=== PATIENT | male | born 1980 | race African-American/Black ===

== ENCOUNTER 2016-04-24 10:37 | Emergency (ER) | payer MEDICAID ==
--- NOTE | 2016-04-24 10:52 | ER Document Report ---
ED Medical Screen (RME) - General Stated Complaint: POSSIBLE ABSCESS Notes: patient is here for evaluation of his tooth abscess, was seen 04/17 and sent home on PO abx main complain is swelling, no pain denies fevers, chills has a speech impediment TRAVEL OUTSIDE OF THE [place] IN LAST 30 DAYS: No - Related Data Allergies/Adverse Reactions: bee pollen [Bee Pollen] Allergy (Verified 04/24/16 10:49) Past Medical History - Immunizations Hx Diphtheria, Pertussis, Tetanus Vaccination: Yes Physical Exam - Vital signs Vitals: Temp Pulse Resp BP Pulse Ox 97.9 F 101 H 20 138/83 H 96 04/24/16 10:45 04/24/16 10:45 04/24/16 10:45 04/24/16 10:45 04/24/16 10:45 Course - Vital Signs Vital signs: Temp Pulse Resp BP Pulse Ox 97.9 F 101 H 20 138/83 H 96 04/24/16 10:45 04/24/16 10:45 04/24/16 10:45 04/24/16 10:45 04/24/16 10:45
[2016-04-24 11:24] LABS: ABSOLUTE BASOPHILS # (AUTO) 0.1 10^3/uL (0.0-0.2); ABSOLUTE EOSINOPHILS # (AUTO) 0.1 10^3/uL (0.0-0.6); ABSOLUTE LYMPHOCYTES (AUTO) 1.3 10^3/uL (0.5-4.7); ABSOLUTE MONOCYTES (AUTO) 0.8 10^3/uL (0.1-1.4); ABSOLUTE NEUT (AUTO) 5.3 10^3/uL (1.7-8.2); BASOPHILS % (AUTO) 1.3 % (0-2); EOSINOPHILS % (AUTO) 1.1 % (0-6); HEMATOCRIT 43.5 % (37.9-51.0); HEMOGLOBIN 14.2 g/dL (13.5-17.0); HGB HCT DIFFERENCE -0.9; LYMPHOCYTES % (AUTO) 17.1 % (13-45); MEAN CORPUSCULAR HEMOGLOBIN 28.6 pg (27.0-33.4); MEAN CORPUSCULAR HGB CONC 32.6 g/dL (32.0-36.0); MEAN CORPUSCULAR VOLUME 88 fl (80-97); MONOCYTES % (AUTO) 10.4 % (3-13); RED BLOOD COUNT 4.94 10^6/uL (4.35-5.55); RED CELL DISTRIBUTION WIDTH 13.8 % (11.5-14.0); SEGMENTED NEUTROPHILS % (AUTO) 70.1 % (42-78); WHITE BLOOD COUNT 7.6 10^3/uL (4.0-10.5)
[2016-04-24] MEDS ORDERED: NORMAL SALINE 1000 ML 1,000 ML IV PRN (11:36)
[2016-04-24] MEDS ORDERED: CLINDAMYCIN 600 MG/D5W RTU 50 ML IV ONE (11:36)
--- NOTE | 2016-04-24 11:39 | ER Document Report ---
ED Oral Problem - General Chief Complaint: Toothache Stated Complaint: POSSIBLE ABSCESS Time seen by provider: 11:37 Mode of Arrival: Ambulatory Information source: Patient Notes: This is a 35-year-old man who has a history of dental caries who presents to the emergency room with swelling to the left mandible. Patient denies fever. He denies difficulty swallowing or talking. The patient does have a speech impediment since and he states that his speech has not changed at all. He denies any wheezing or any pain in the neck. Patient was evaluated and treated one week ago and sent home on antibiotics. He presents with persistent symptoms. TRAVEL OUTSIDE OF THE [place] IN LAST 30 DAYS: No - HPI Patient complains to provider of: Jaw pain, Swelling of face, Swelling of jaw Onset: Last week Onset: Gradual Quality of pain: Achy Severity: Mild Pain Level: Denies Context: Fractured tooth, Recent antibiotic use Associated symptoms: denies: Chills, Difficulty speaking, Fever, Tongue swelling Similar symptoms previously: Yes Recently seen / treated by doctor/dentist: Yes - Related Data Allergies/Adverse Reactions: bee pollen [Bee Pollen] Allergy (Verified 04/24/16 10:49) Past Medical History - General Information source: Patient - Social History Smoking Status: Never Smoker Cigarette use (# per day): No Chew tobacco use (# tins/day): No Frequency of alcohol use: Occasional Drug Abuse: None Lives with: Family Family History: Reviewed & Not Pertinent Patient has suicidal ideation: No Patient has homicidal ideation: No - Past Medical History Cardiac Medical History: Reports: None Pulmonary Medical History: Reports: None EENT Medical History: Reports: Other - History of dental abscesses before Neurological Medical History: Reports: None Endocrine Medical History: Reports: None Renal/ Medical History: Reports: None. Denies: Hx Peritoneal Dialysis Malignancy Medical History: Reports None GI Medical History: Reports: None Musculoskeltal Medical History: Reports None Skin Medical History: Reports None Psychiatric Medical History: Reports: None Traumatic Medical History: Reports: None Infectious Medical History: Reports: None Surgical Hx: Other - Noncontributory - Immunizations Hx Diphtheria, Pertussis, Tetanus Vaccination: Yes Review of Systems - Review of Systems Constitutional: denies: Chills, Fever EENT: No symptoms reported Cardiovascular: No symptoms reported Respiratory: No symptoms reported Gastrointestinal: No symptoms reported Genitourinary: No symptoms reported Male Genitourinary: No symptoms reported Musculoskeletal: No symptoms reported Skin: No symptoms reported Hematologic/Lymphatic: No symptoms reported Neurological/Psychological: No symptoms reported Physical Exam - Vital signs Vitals: Temp Pulse Resp BP Pulse Ox 97.9 F 101 H 20 138/83 H 96 04/24/16 10:45 04/24/16 10:45 04/24/16 10:45 04/24/16 10:45 04/24/16 10:45 Notes: Physical exam: GENERAL: 35-year-old man, alert and oriented 3, no acute distress, sitting up in stretcher without any difficulty. The patient does tolerate lying down without any difficulty. He is afebrile and he has stable vital signs. HEAD: Atraumatic, normocephalic. EYES: Pupils equal round and reactive to light, extraocular movements intact, sclera anicteric, conjunctiva are normal. ENT: TMs normal, nares patent, oropharynx reveals significant dental caries to the left lower first molar. There is no obvious pus drainage from there. The patient does have swelling just below this area over the mandible without obvious fluctuance. Moist mucous membranes. There is no trismus. The floor of the mouth is soft and there is no obvious induration, tenderness or swelling. NECK: Normal range of motion, supple, there is no stridor, there is no tenderness to palpation or fluctuance or swelling of the submental spaces. LUNGS: Breath sounds clear to auscultation bilaterally and equal. No wheezes rales or rhonchi. HEART: Regular rate and rhythm without murmurs, rubs or gallops. ABDOMEN: Soft, nontender, normoactive bowel sounds. No guarding, no rebound. No masses appreciated. EXTREMITIES: Normal range of motion, no pitting or edema. No clubbing or cyanosis. NEUROLOGICAL: Cranial nerves II through XII grossly intact. Normal speech, normal gait. PSYCH: Normal mood, normal affect. SKIN: Warm, Dry, normal turgor, no rashes or lesions noted. Course - Re-evaluation Re-evalutation: 04/24/16 15:54 Note: The patient has a left mandibular subcutaneous abscess from periodontal disease. Given the patient's body habitus, the concern is that if the abscess extends into the submental space, he will develop Dariusz angina. Currently, the floor of his mouth is soft and there is no tenderness or fluctuance or induration in the submental space. He has no odynophagia, dysphagia or difficulty swallowing and he does not appear septic. We do not have oral surgery or ENT available for consultation. I discussed the case with Dr. Aj of [facility] at [facility] and he recommended transfer ED to ED. I spoke to Dr. Antonio who is willing to accept the patient to the ED. Patient has received IV fluids and IV clindamycin thus far. 04/24/16 19:46 - Vital Signs Vital signs: Temp Pulse Resp BP Pulse Ox 98.5 F 92 17 138/83 H 96 04/24/16 15:38 04/24/16 15:38 04/24/16 15:38 04/24/16 15:38 04/24/16 15:38 - Laboratory Result Diagrams: 04/24/16 11:05 04/24/16 11:05 Laboratory results interpreted by me: 04/24/16 11:05 BUN 21 H - Diagnostic Test Radiology reviewed: Image reviewed, Reports reviewed - CT of the neck reveals a subcutaneous left mandibular abscess Discharge - Discharge Clinical Impression: mandibular abscess Condition: Stable Disposition: [facility]
[2016-04-24 11:47] LABS: ALANINE AMINOTRANSFERASE 38 U/L (21-72); ALBUMIN 3.9 g/dL (3.5-5.0); ALKALINE PHOSPHATASE 82 U/L (38-126); ANION GAP 10 (5-19); ASPARTATE AMINO TRANSFERASE 34 U/L (17-59); BILIRUBIN,TOTAL 0.3 mg/dL (0.2-1.3); BLOOD UREA NITROGEN 21 mg/dL (7-20); CALCIUM 9.2 mg/dL (8.4-10.2); CARBON DIOXIDE 29 mmol/L (22-30); CHLORIDE 101 mmol/L (98-107); CREATININE RESULT 1.11 mg/dL (0.52-1.25); GLUCOSE 100 mg/dL (75-110); POTASSIUM 4.3 mmol/L (3.6-5.0); SODIUM 140.4 mmol/L (137-145); TOTAL PROTEIN 7.1 g/dL (6.3-8.2)
[2016-04-24 20:02] VITALS: BP 140/86
== END 2016-04-24 20:00 | disposition short-term general hospital (02) ==
LOC: ER 10:37
DX: K05.6 Periodontal disease, unspecified (principal); M27.2 Inflammatory conditions of jaws; R68.84 Jaw pain; K08.89 Other specified disorders of teeth and supporting structures; Z91.030 Bee allergy status
CPT/HCPCS: 99283; 96365; 36415; 85025; 80053; 70491; S0077; J7030

== ENCOUNTER 2018-06-08 01:08 | Emergency (ER) | payer MEDICAID ==
--- NOTE | 2018-06-08 01:23 | ER Document Report ---
ED Medical Screen (RME) - General Chief Complaint: Cough Stated Complaint: COUGH Time Seen by Provider: 06/08/18 01:16 Mode of Arrival: Ambulatory Information source: Patient Notes: 37-year-old -[place] male with no apparent medical problems coming in tonight with shortness of breath. No previous history. I have treated and performed a rapid initial assessment of this patient. A co mprehensive ED assessment and evaluation of the patient, analysis of test results and completion of medical decision making process will be conducted by additional ED providers. PHYSICAL EXAMINATION: GENERAL: Well-appearing, well-nourished and in no acute distress. A&Ox4. Answers questions appropriately. LUNGS: Breath sounds clear to auscultation bilaterally and equal. No wheezes rales or rhonchi. HEART: Slightly tachycardic ABDOMEN: Soft, nondistended abdomen. No guarding, no rebound. Normal bowel sounds present. No CVA tenderness bilaterally. + mild epigastric tenderness (cannot elicit thorough abd exam w/o table, however). Extremities: No cyanosis, clubbing, or edema b/l. NEUROLOGICAL: Normal speech, normal gait. PSYCH: Normal mood, normal affect. TRAVEL OUTSIDE OF THE [place] IN LAST 30 DAYS: No - Related Data Allergies/Adverse Reactions: bee pollen [Bee Pollen] Allergy (Verified 04/24/16 10:49) Past Medical History Renal/ Medical History: Denies: Hx Peritoneal Dialysis - Immunizations Hx Diphtheria, Pertussis, Tetanus Vaccination: Yes Physical Exam - Vital signs Vitals: Temp Pulse Resp BP Pulse Ox 97.8 F 96 18 149/102 H 94 06/08/18 01:15 06/08/18 01:15 06/08/18 01:15 06/08/18 01:15 06/08/18 01:15 Course - Vital Signs Vital signs: Temp Pulse Resp BP Pulse Ox 97.8 F 96 18 149/102 H 94 06/08/18 01:15 06/08/18 01:15 06/08/18 01:15 06/08/18 01:15 06/08/18 01:15
--- NOTE | 2018-06-08 02:21 | RADIOLOGY REPORT (SQ) ---
EXAM DESCRIPTION: XR CHEST 2 VIEWS COMPLETED DATE/TME: 06/08/2018 01:21 CLINICAL HISTORY: 37 years, Male, sob COMPARISON: None. NUMBER OF VIEWS: Two TECHNIQUE: Two LIMITATIONS: None. FINDINGS: The lungs are clear. The heart is normal in size. There is no pneumothorax or pleural effusion. The bones are unremarkable IMPRESSION: No acute cardiopulmonary abnormality copyright 2010 [employer]- All Rights Reserved
--- NOTE | 2018-06-08 02:40 | ER Document Report ---
Entered by BHARATH HILLS SCRIBE 06/08/18 0234 Acting as scribe for:SHIELA WHEELER DO ED Respiratory Problem - General Chief Complaint: Cough Stated Complaint: COUGH Time Seen by Provider: 06/08/18 01:16 Primary Care Provider: RAYMOND JAQUEZ MD [ACTIVE STAFF] - Follow up as needed Mode of Arrival: Ambulatory Information source: Patient Notes: 37-year-old male who presents to the emergency department today with complaints of a productive cough since 1800 yesterday. Patient states he is bringing up dark yellow sputum with his cough. Patient denies chest pain, shortness of breath, vomiting or diarrhea. TRAVEL OUTSIDE OF THE [place] IN LAST 30 DAYS: No - Related Data Allergies/Adverse Reactions: bee pollen [Bee Pollen] Allergy (Verified 04/24/16 10:49) Past Medical History - General Information source: Patient - Social History Smoking Status: Never Smoker Cigarette use (# per day): No Chew tobacco use (# tins/day): No Frequency of alcohol use: Rare Drug Abuse: None Lives with: Family Family History: Reviewed & Not Pertinent Patient has suicidal ideation: No Patient has homicidal ideation: No Renal/ Medical History: Denies: Hx Peritoneal Dialysis - Immunizations Hx Diphtheria, Pertussis, Tetanus Vaccination: Yes Review of Systems - Review of Systems Constitutional: No symptoms reported EENT: No symptoms reported Cardiovascular: denies: Chest pain Respiratory: See HPI, Cough. denies: Short of breath Gastrointestinal: denies: Diarrhea, Vomiting Genitourinary: No symptoms reported Male Genitourinary: No symptoms reported Musculoskeletal: No symptoms reported Skin: No symptoms reported Hematologic/Lymphatic: No symptoms reported Neurological/Psychological: No symptoms reported -: Yes All other systems reviewed and negative Physical Exam - Vital signs Vitals: Temp Pulse Resp BP Pulse Ox 97.8 F 96 18 149/102 H 94 06/08/18 01:15 06/08/18 01:15 06/08/18 01:15 06/08/18 01:15 06/08/18 01:15 - Notes Notes: PHYSICAL EXAM GENERAL: Alert, interacts well. No acute distress. HEAD: Normocephalic, atraumatic. EYES: Pupils equal, round, and reactive to light. Extraocular movements intact. ENT: Oral mucosa moist, tongue midline. NECK: Full range of motion. Supple. Trachea midline. LUNGS: Clear to auscultation bilaterally, no wheezes, rales, or rhonchi. No respiratory distress. Wet cough while being interviewed HEART: Regular rate and rhythm. No murmurs, gallops, or rubs. ABDOMEN: Soft, non-tender. Non-distended. Bowel sounds present in all 4 quadrants. No guarding, rigidity, or rebound. EXTREMITIES: Moves all 4 extremities spontaneously. No edema, radial and dorsalis pedis pulses 2/4 bilaterally. No cyanosis. NEUROLOGICAL: Alert and oriented x3. Somewhat garbled speech which appears to be baseline speech impediment. PSYCH: Normal affect, normal mood. SKIN: Warm, dry, normal turgor. No rashes or lesions noted. Course - Re-evaluation Re-evalutation: 06/08/18 02:31 Chest x-ray shows no acute process, EKG is nonischemic. Patient has no chest pain. Patient's biggest concern is his cough and the fact that he is bringing up mucus. It is not blood streaked. Patient states that he came in tonight because he has a Medicare card and just needs to know what medication he needs to buy. Patient will be given cough suppressants and Mucinex. Discharged to home. 06/08/18 02:40 - Vital Signs Vital signs: Temp Pulse Resp BP Pulse Ox 97.8 F 96 18 149/102 H 94 06/08/18 01:15 06/08/18 01:15 06/08/18 01:15 06/08/18 01:15 06/08/18 01:15 - EKG Interpretation by Me Additional EKG results interpreted by me: 06/08/18 02:31 EKG shows sinus rhythm at a rate of 90, LVH, ST segment elevation in V2 and V3 both less than 2 mm consistent with LVH, isolated T wave inversions in lead III, T wave flattening in aVF per my interpretation. Discharge - Discharge Clinical Impression: Productive cough Condition: Stable Disposition: HOME, SELF-CARE Additional Instructions: Cough Suppressant/Expectorant Medication You are to use a cough medication as needed for relief of symptoms. This medicine is a combination of an expectorant (to make the mucous thinner and more easily "coughed up") and a cough suppressant (to reduce the frequency of coughing). The cough-suppressant medicine is related to narcotics. You may experience mild nausea and sleepiness. Some patients who are very sensitive to narcotics may have stomach pain from this medicine. Taking the medicine with food reduces these side effects. Do not drive or work with machinery until you know how this medicine affects you. The expectorant should have no side effects. Iodine-containing expectorants (such as organidin) should not be taken by persons with active thyroid disease unless approved by your doctor. Call the doctor if you develop shortness of breath, hives, rash, itching, lightheadedness, or severe nausea and vomiting. You do not have any evidence of pneumonia. This is likely a viral infection. Please drink plenty of fluids. Please use ibuprofen (Motrin or Advil) 600-800 mg every 8 hours as needed for pain or fever. You may also use acetaminophen (Tylenol) 1000 mg every 4-6 hours as needed for pain or fever. Please be aware that many medications contain acetaminophen, do not exceed a total of 1000 mg of acetaminophen every 6 hours. Prescriptions: Benzonatate [Tessalon Perles 100 mg Capsule] 100 mg PO Q8HP PRN #40 capsule PRN Reason: Guaifenesin [Mucinex] 1,200 mg PO BID #10 [id number] Referrals: RAYMOND JAQUEZ MD [ACTIVE STAFF] - Follow up as needed Scribe Attestation: 06/08/18 02:40 I personally performed the services described in the documentation, reviewed and edited the documentation which was dictated to the scribe in my presence, and it accurately records my words and actions. I personally performed the services described in the documentation, reviewed and edited the documentation which was dictated to the scribe in my presence, and it accurately records my words and actions.
[2018-06-08 02:46] VITALS: BP 139/86
--- NOTE | 2018-06-08 16:41 | EKG REPORT ---
SEVERITY:- BORDERLINE ECG - SINUS RHYTHM LVH BY VOLTAGE ST ELEV, PROBABLE NORMAL EARLY REPOL PATTERN : Confirmed by: Sravanthi Cesar 08-Jun-2018 16:40:17
== END 2018-06-08 02:47 | disposition home or self-care (01) ==
LOC: ER 01:08
DX: R05 Cough (principal); Z91.030 Bee allergy status
CPT/HCPCS: 71046; 93005; 93010; 99283

== ENCOUNTER 2019-10-16 19:27 | Emergency (ER) | payer MEDICAID ==
--- NOTE | 2019-10-16 19:54 | ER Document Report ---
ED Medical Screen (RME) - General Chief Complaint: Finger Injury Stated Complaint: FINGER INJURY Time Seen by Provider: 10/16/19 19:50 Primary Care Provider: RAYMOND JAQUEZ MD [Primary Care Provider] - Follow up as needed Mode of Arrival: Ambulatory Information source: Patient Notes: HPI; 39-year-old male presents to the emergency room with an injury to his right index finger. Patient states he got it caught in a car door earlier today. Any increasing bruising and swelling throughout the day. Patient is left-handed. No medications for pain. PE: Alert and oriented x3. Right distal fingernail to the index finger with a subungual hematoma noted. There is mild deformity noted at the base of the nail. Positive right radial pulse. Capillary refill less than 3 seconds. I have greeted and performed a rapid initial assessment of this patient. A comprehensive ED assessment and evaluation of the patient, analysis of test results and completion of the medical decision making process will be conducted by additional ED providers. I have specifically instructed the patient or family members with the patient to immediately return to any nursing staff should anything change in the patient's condition or with their chief complaint. TRAVEL OUTSIDE OF THE [place] IN LAST 30 DAYS: No - Related Data Allergies/Adverse Reactions: bee pollen [Bee Pollen] Allergy (Verified 04/24/16 10:49) Past Medical History Renal/ Medical History: Denies: Hx Peritoneal Dialysis - Immunizations Hx Diphtheria, Pertussis, Tetanus Vaccination: Yes Physical Exam - Vital signs Vitals: Temp Pulse Resp BP Pulse Ox 98.7 F 96 16 148/87 H 95 10/16/19 19:31 10/16/19 19:31 10/16/19 19:31 10/16/19 19:31 10/16/19 19:31 Course - Vital Signs Vital signs: Temp Pulse Resp BP Pulse Ox 98.7 F 96 16 148/87 H 95 10/16/19 19:31 10/16/19 19:31 10/16/19 19:31 10/16/19 19:31 10/16/19 19:31 Doctor's Discharge - Discharge Referrals: RAYMOND JAQUEZ MD [Primary Care Provider] - Follow up as needed
--- NOTE | 2019-10-16 20:32 | RADIOLOGY REPORT (SQ) ---
EXAM DESCRIPTION: X-ray, three views of the right second finger. CLINICAL HISTORY: 39 years Male, index finger injury injured in a car door COMPARISON: None. FINDINGS: Soft tissue swelling is noted predominantly involving the tip of the second finger. Alignment is anatomic. Bone mineralization is normal. No fracture is identified. No erosions or periostitis. Bone mineralization is normal. IMPRESSION: Soft tissue swelling of the second finger distally. No definite fracture.
--- NOTE | 2019-10-16 21:01 | ER Document Report ---
HPI - HPI Time Seen by Provider: 10/16/19 19:50 Pain Level: Denies Context: Patient is a 39-year-old male that comes to the emergency department for chief complaint of injury to the right index finger and nail bed. Patient reports sharp pain which is throbbing in the finger. He denies any other injuries. The injury occurred when he accidentally caught his finger in between a door and a wall. He denies any bleeding from the area. He is not on a blood thinner. - REPRODUCTIVE Reproductive: DENIES: : Past Medical History - General Information source: Patient - Social History Smoking Status: Never Smoker Frequency of alcohol use: None Drug Abuse: None Lives with: Family Family History: Reviewed & Not Pertinent Patient has homicidal ideation: No Renal/ Medical History: Denies: Hx Peritoneal Dialysis Surgical Hx: Negative - Immunizations Hx Diphtheria, Pertussis, Tetanus Vaccination: Yes Vertical Provider Document - CONSTITUTIONAL General Appearance: WD/WN, No Apparent Distress - INFECTION CONTROL TRAVEL OUTSIDE OF THE [place] IN LAST 30 DAYS: No - HEENT HEENT: Atraumatic, Normal ENT Exam, Normocephalic - RESPIRATORY Respiratory: Breath Sounds Normal, No Respiratory Distress - CARDIOVASCULAR Cardiovascular: Regular Rate, Regular Rhythm - GI/ABDOMEN Gastrointestinal: Abdomen Soft, Abdomen Non-Tender - BACK Back: Normal Inspection - MUSCULOSKELETAL/EXTREMETIES Musculoskeletal/Extremeties: MAEW, FROM, Tender - Right index finger with some swelling over the distal finger just before and including the nail, there is an obvious subungual hematoma, there is some tenderness with palpation of the finger. However full range of motion is present, normal strength against resistance in flexion extension, normal capillary refill and sensation, no open wounds. No other signs of trauma or abnormality noted. - NEURO Level of Consciousness: Awake, Alert, Appropriate Motor/Sensory: Other - Patient with a speech impediment - DERM Integumentary: Warm, Dry, No Rash Course - Re-evaluation Re-evalutation: X-rays negative for fracture or concerning findings. Evaluation is consistent for soft tissue injury and subungual hematoma. Discussed with patient, this was drained without any difficulty, quite a large amount of blood was expressed from under the nail. Area was cleaned, dressed with clean dressing, discussed care, follow-up, return precautions. Patient states appreciation and agreement. - Vital Signs Vital signs: Temp Pulse Resp BP Pulse Ox 98.7 F 96 16 148/87 H 95 10/16/19 19:31 10/16/19 19:31 10/16/19 19:31 10/16/19 19:31 10/16/19 19:31 Procedures - Nail Trephanation/Removal Right Hand 2nd digit Nail Trepanation/Removal Location: Right index fingernail, subungual hematoma Betadine prep applied: No - Alcohol prep Method of Drainage: Nail cauterized Sterile Dressing Applied: Yes Finger Splint: No Notes: Area was cleaned thoroughly, a single hole was made in the center of the nail using nail cautery pen, moderately large amount of blood came out and was expressed, gradually stopped bleeding. Patient tolerated this very well. Area was cleaned thoroughly and dressed with Xeroform. Discharge - Discharge Clinical Impression: Subungual hematoma Injury of right index finger Qualifiers: Encounter type: initial encounter Qualified Code(s): S69.91XA - Unspecified injury of right wrist, hand and finger(s), initial encounter Condition: Stable Disposition: HOME, SELF-CARE Additional Instructions: Your x-ray does not show a fracture or concerning findings. Your injury showed bleeding underneath the nail, as result an opening was made to drain the blood. I recommend that you keep the current dressing on for 2 days. Afterwards clean the area with soap and water and apply a topical antibiotic and Band-Aid. You can take [id number] ibuprofen and Tylenol for pain. This should simply heal with time and the swelling should go away in your finger. Follow-up with primary care. Come back if you are worse including severe worsening pain or swelling, developing redness, or any other concerning or worsening symptoms. Referrals: RAYMOND JAQUEZ MD [Primary Care Provider] - Follow up as needed
[2019-10-16 21:15] VITALS: BP 138/91
== END 2019-10-16 21:12 | disposition home or self-care (01) ==
LOC: ER 19:27
PROC: 0HBQXZZ Excision of Finger Nail, External Approach (ICD-10-PCS; principal; 2019-10-16)
DX: S60.121A Contusion of right index finger with damage to nail, initial encounter (principal); M79.644 Pain in right finger(s); M79.89 Other specified soft tissue disorders; X58.XXXA Exposure to other specified factors, initial encounter
CPT/HCPCS: 99283